=== PATIENT | female | born 1955 | race American Indian/Alaskan Native ===

== ENCOUNTER 2018-06-04 06:53 | Day surgery (SDC) | payer MEDICARE, OTHER ==
[2018-06-04] MEDS ORDERED: Propofol 10 mg/ml Inj (20 ML) ONE (09:36)
--- NOTE | 2018-06-04 09:51 | CP.SDSHP ---
Same Day Surgery H & P - History Proposed Procedure: EGD Pre-Op Diagnosis: SEE NOTES - Previous Medical/Surgical History Cardiac: Hypertension Neuro: Backaches Pain: 4.Moderate Pain - Allergies Allergies: Allergies Penicillins Allergy (Verified 06/04/18 07:06) RASH - Physical Exam General Appearance: N Vital Signs: Vital Signs 06/04/18 07:10 Temperature 97 F L Pulse Rate 70 Respiratory 19 Rate Blood Pressure 149/88 O2 Sat by Pulse 96 Oximetry Mental Status: Alert & Oriented x3 Neuro: WNL Heart: Other Lungs: WNL GI: Other - {Optional Preform as Required} Breast: WNL Abdomen: Other Rectal: Other Integument: WNL : WNL Ortho: Other ENT: WNL - Impression Pt. Evaluated Today:Candidate for Anesthesia & Procedure: Yes - Date & Time Time: 09:51 Short Stay Discharge - Short Stay Discharge Admitting Diagnosis/Reason for Visit: DYSPHAGIA, PHARYNGOESOPHAGEAL PHASE Disposition: HOME/ ROUTINE
[2018-06-04 10:22] VITALS: TEMP 97.1
[2018-06-04] MEDS ORDERED: Sucralfate 1 gm/10 ml Oral Susp UD PO ONE (10:30)
[2018-06-04 11:05] VITALS: BP 132/85; PULSE 58; RESP 14; O2SAT 99
== END 2018-06-04 11:30 | disposition home or self-care (01) ==
LOC: C.ENDO 06:53
PROVIDERS: ATTEND Specialist
DX: R13.14 Dysphagia, pharyngoesophageal phase (principal); K25.9 Gastric ulcer, unspecified as acute or chronic, without hemorrhage or perforation; K44.9 Diaphragmatic hernia without obstruction or gangrene; K31.1 Adult hypertrophic pyloric stenosis
CPT/HCPCS: 43239; 88305; J2704

== ENCOUNTER 2018-07-22 08:49 | Outpatient (CLI) | payer MEDICARE, OTHER | END 2018-07-22 08:50 | disposition home or self-care (01) | LOC: C.VASC 08:49 | DX: I10 Essential (primary) hypertension (principal) ==

== ENCOUNTER 2018-09-21 09:30 | Outpatient (CLI) | payer MEDICARE, OTHER | END 2018-09-21 09:31 | disposition home or self-care (01) | LOC: C.LAB 09:30 | DX: I70.1 Atherosclerosis of renal artery (principal) ==

== ENCOUNTER 2018-09-23 10:44 | Outpatient (CLI) | payer MEDICARE, OTHER | END 2018-09-23 10:45 | disposition home or self-care (01) | LOC: C.CTH 10:44 | DX: I70.1 Atherosclerosis of renal artery (principal) ==